=== PATIENT | female | born 1995 | race Caucasian/White ===

== ENCOUNTER 2017-11-05 20:23 | Emergency (ER) | payer SELFPAY ==
[~2017-11-05] VITALS: Ht 160 cm; Wt 65.8 kg
[2017-11-05 20:23] VITALS: BP 112/75
== END 2017-11-05 20:59 | disposition home or self-care (01) ==
LOC: ER 20:26
DX: J40 Bronchitis, not specified as acute or chronic (principal); M79.1 Myalgia; Z98.890 Other specified postprocedural states
CPT/HCPCS: A4606; Z7610